=== PATIENT | male | born 1965 | race Caucasian/White ===

== ENCOUNTER 2018-01-31 06:04 | Inpatient (IN) | payer SELFPAY ==
--- NOTE | 2018-01-31 06:23 | PDOC ---
History of Present Illness - General Chief Complaint: Syncope/Near Syncope Stated Complaint: SYNCOPE X2 Time Seen by Provider: 01/31/18 06:17 History Source: Patient, EMS, Family Exam Limitations: No Limitations - History of Present Illness Initial Comments: 01/31/18 06:18 52 YOM without known PMH but who has been estranged from the healthcare system for several years, who p/w two episodes of syncope with GLF to the floor this morning, first was unwitnessed but the came and found him on the floor after hearing a thud, states he would not awaken for several minutes but after he did, he was able to stand and walk, but then had the second event shortly thereafter and hit the back of his head on the floor. EMS notes that the patient was noted to be in A-fib with rate between 70 and 100 for the duration of their care, no known h/o A-fib. His FSBG was 98 en route. The patient currently notes lightheadedness and pain to the back of his head where he hit it. No vision change, nausea, vomiting, chest pain, SOB, abdominal pain, back pain, neck pain, urinary incontinence/retention, black/bloody stool. Does not smoke, drinks socially but not in the past two days. Only one prior syncopal episode in his life when he was 11 years old. tPA Exclusion Checklist 0-3hr - Time Elapsed Date last known well: 01/31/18 Time last known well: 06:00 Elaspsed time: Day(s) and 1 Hour(s) and 0 Minutes - Thrombolytic Therapy Candidate Is the patient eligible for Thrombolytic Therapy?: No - Exclusion Criteria 0-3hr SBP greater than 185 or DBP greater than 110mmHg despite tx: No Recent IC/spinal surgery,head trauma or stroke w/in last 3mo: No Hx of previous IC hemorrhage, IC neoplasm, AVM or aneurysm: No Active internal bleeding: No Blding diathesis(low plt ct, inc PTT,INR>1.7 or use of NOAC): No Symptoms suggest subarachnoid hemorrhage: No CT demonstrates multilobar infarct(>1/3 cerebral hemiphere): No Arterial puncture at noncompressible site in previous 7 days: No Blood glucose concentration less than 50mg/dL (2.7mmol/L): No - Relative Exclusion Criteria 0-3h Life expectancy <1yr/severe co-morbid illness/EARRING [employer]ER on admit: No : No Patient/family refused: No Rapid improvement: Yes Stroke severity too mild: Yes Recent acute [place] (w/in previous 3 months): No Seizure at onset with postictal residual neuro impairments: No Major surgery or serious trauma w/in previous 14 days: No Recent GI or hemorrhage (w/in previous 21 days): No - Ineligibility reason(s) Reasons No tPA given: See reason(s) noted above NIH Stroke Scale - Last Known Well Date/Time & Onset Date Last Known Well: 01/31/18 Time Last Known Well: 06:00 - Initial Evaluation Level of consciousness: Alert Ask patient the month and their age: Answers both correctly Ask patient to open & close eyes; make fist and let go: Obeys both correctly Best gaze (horizontal eye movement): Normal Visual field testing: No visual field loss Facial paresis (Show teeth/raise eyebrows/close eyes tight): Normal symmetrical movement Motor Function: Left Arm: Normal Motor Function: Right Arm: Normal (extends arm 90 (or 45) degrees for 10 seconds without drift Motor Function: Left Leg: Normal (extends leg 30 degrees for 5 seconds without drift) Motor Function: Right Leg: Normal (extends leg 30 degrees for 5 seconds without drift) Limb Ataxia: No ataxia Sensory(Use pinprick test arms,legs,trunk,face/side to side): Normal Best language (Describe picture, name items, read sentences): No Aphasia Dysarthria (read several words): Normal articulation Extinction and Inattention: No abnormality - Total Score NIH Stroke Scale Score: 0 Past History - Past Medical History Allergies/Adverse Reactions: Allergies Allergy/AdvReac Type Severity Reaction Status Date / Time No Known Allergies Allergy Verified 01/31/18 06:18 Review of Systems - Review of Systems Able to Perform ROS?: Yes Comments:: 01/31/18 06:35 GEN: no fever, chills, malaise, generalized weakness, or weight change HEENT: no ear pain, sore throat, vision change, or eye pain CV: lightheadedness, syncope, no chest pain, palpitations, or edema RESP: no cough, wheezing, or SOB GI: no abdominal pain, nausea, vomiting, diarrhea, constipation, or white/black/ bloody stool : no dysuria, hematuria, incontinence, retention, bleeding, or discharge MSK: no neck/back pain, muscle weakness/pain, or joint swelling/pain NEURO: headache, no seizure, vertigo, numbness, tingling, or focal weakness PSYCH: no substance use, no behavior change SKIN: no jaundice, no rash ROS otherwise negative except as noted in HPI *Physical Exam - Vital Signs 01/31/18 06:37 Initial Vital Signs Temp Pulse Resp BP Pulse Ox 97.6 F 75 18 120/82 98 01/31/18 06:05 01/31/18 06:05 01/31/18 06:05 01/31/18 06:05 01/31/18 06:05 GENERAL: well-appearing, A/Ox4, no distress, answers questions appropriately, accompanied by family members HEENT: PERRLA, EOMI, moist mucous membranes, no scalp contusion, no cephalohematoma, no scalp laceration, no raccoon eyes, no ewing sign, no hemotympanum, no CSF rhinorrhea/otorrhea, no jaw malocclusion NECK/BACK: no midline ttp C/T/L spine, no spinal stepoff or deformity, no hematoma, full ROM, neck supple CARDIOVASCULAR: irregularly irregular, not tachycardic or bradycardic, normal S1S2, no MGR, strong peripheral pulses, capillary refill <2 seconds, extremities wwp, no edema LUNGS/RESPIRATORY: no respiratory distress, CTAB, equal breath sounds bilaterally GI/ABDOMEN: symmetric [id number], normoactive BS, soft, no ttp, no midline pulsatile masses : no CVA tenderness EXTREMITIES: pelvis stable, no thigh hematoma, no muscle atrophy, no acute deformity, no edema SKIN: warm and dry, no pallor, no jaundice, no rash, no bruising, no skin breakdown, no cuts, no lesions NEUROLOGICAL: GCS 15, CN II-XII grossly intact, 5/5 strength proximally and distally, no facial droop, normal [id number], no pronator drift, NIHSS is 0 , horizontal nystagmus on extreme lateral gaze bilaterally which lasts ~5 seconds then extinguishes, does not change direction, no rotational component ED Treatment Course - LABORATORY CBC & Chemistry Diagram: 01/31/18 06:27 01/31/18 06:27 Medical Decision Making - Medical Decision Making 01/31/18 06:43 Adult male Pt p/w reported LOC with loss of postural tone and GLF, x2 episodes, with spontaneous recovery, consistent with syncope. EMS reports was in A-fib without RVR, no prior reported hx but patient not feeling palpitations/arrhythmia now. Initial Vital Signs Temp Pulse Resp BP Pulse Ox 97.6 F 75 18 120/82 98 01/31/18 06:05 01/31/18 06:05 01/31/18 06:05 01/31/18 06:05 01/31/18 06:05 Exam: As noted in Physical Exam section. Main concern is that the patient is in new-onset A-fib which has precipitated these two syncopal episodes, OR that the patient has had a thromboembolic event from chronic long-standing A-fib which he is untreated for because he is estranged from healthcare x years. The patient will need dry head CT at this time. He is neurologically intact at this time and therefore not candidate for any vascular intervention or tPA, and thus emergent MRI/MRA is not needed. Also considered on ddx are reflex syncope, ACS, other conduction abnormality e.g. SVT /WPW/[place]/long QT/ventricular dysrhythmia, structural heart disease e.g. valvular disease, PE, orthostatic hypotension, TIA/CVA, SAH, seizure, metabolic/ electrolyte derangement e.g. DM/DKA/thyroid issue, infection/sepsis/vitals abnormalities, etc. W/U ordered: EKG CXR Head CT CBCD CMP Mg Phos Cardiac Panel UA UCx TSH TX ordered: IVF, O2, monitor EKG: Reviewed; results as noted in ECG Review section. CXR: Pending CT Head: Pending Labs: Pending Reassessment: Unchanged, no complaints Patient is presented to Dr. Hernandez and endorsed to Emily Werner at the end of my shift.
[2018-01-31 06:39] LABS: BASO % 0.7 % (0-2.0); EOS % 3.8 % (0-4.5); HEMATOCRIT 47.9 % (35.4-49); HEMOGLOBIN 16.1 GM/dL (11.7-16.9); LYMPH % 29.6 % (8-40); MCH 31.1 pg (25.7-33.7); MCHC 33.7 g/dl (32.0-35.9); MEAN CELL VOLUME 92.4 fl (80-96); MEAN PLT VOLUME 10.1 fl (7.5-11.1); MONO % 5.8 % (3.8-10.2); NEUT % 60.1 % (42.8-82.8); PLATELET COUNT 203 K/MM3 (134-434); RBC 5.19 M/mm3 (4.00-5.60); RDW 13.1 % (11.9-15.9); WHITE BLOOD COUNT 7.5 K/mm3 (4.0-10.0)
[2018-01-31 06:52] LABS: INR 0.97 (0.83-1.09); PROTHROMBIN TIME (PATIENT) 11.5 SEC (9.7-13.0)
[2018-01-31 07:16] LABS: ALBUMIN 3.6 g/dl (3.4-5.0); ALK PHOS 70 U/L (45-117); ANION GAP 7 MMOL/L (8-16); BILIRUBIN,TOTAL 0.6 mg/dL (0.2-1); BLOOD UREA NITROGEN 14 mg/dL (7-18); CALCIUM 8.6 mg/dL (8.5-10.1); CHLORIDE 108 mmol/L (98-107); CO2 28 mmol/L (21-32); CREATININE 0.9 mg/dL (0.55-1.3); GLUCOSE,RANDOM 95 mg/dL (74-106); MAGNESIUM 2.2 mg/dL (1.8-2.4); PHOSPHOROUS 3.4 mg/dL (2.5-4.9); POTASSIUM 4.4 mmol/L (3.5-5.1); SGOT/AST 20 U/L (15-37); SGPT/ALT 33 U/L (13-61); SODIUM 143 mmol/L (136-145); TOT PROT 6.6 g/dl (6.4-8.2)
--- NOTE | 2018-01-31 07:26 | PDOC ---
*Physical Exam - Vital Signs Last Vital Signs Temp Pulse Resp BP Pulse Ox 97.6 F 100 H 18 120/82 98 01/31/18 06:05 01/31/18 06:40 01/31/18 06:05 01/31/18 06:05 01/31/18 06:05 ED Treatment Course - LABORATORY CBC & Chemistry Diagram: 01/31/18 06:27 01/31/18 06:27 - ADDITIONAL ORDERS Additional order review: Laboratory Results 01/31/18 01/31/18 06:27 06:27 PT with INR 11.50 INR 0.97 Sodium 143 Potassium 4.4 Chloride 108 H Carbon Dioxide 28 Anion Gap 7 L BUN 14 Creatinine 0.9 Creat Clearance w eGFR > 60 Random Glucose 95 Calcium 8.6 Phosphorus 3.4 Magnesium 2.2 Total Bilirubin 0.6 AST 20 ALT 33 Alkaline Phosphatase 70 Creatine Kinase 95 Troponin I < 0.02 Total Protein 6.6 Albumin 3.6 TSH 3.09 01/31/18 06:27 RBC 5.19 MCV 92.4 MCHC 33.7 RDW 13.1 MPV 10.1 Neutrophils % 60.1 Lymphocytes % 29.6 Monocytes % 5.8 Eosinophils % 3.8 Basophils % 0.7 Medical Decision Making - Medical Decision Making Pt was signed out to me by resident Dr. Arboleda, who explained the presentation, ED course, any pending results, and needed interventions. Pending results include head CT. Pt is currently stable, has been rate controlled (HR in 70-80s ) and is lying comfortably. CBC, CMP and coags WNL. Pending head CT and then will admit for observation and further work-up. 01/31/18 07:23 Chest x-ray and head CT WNL, no acute pathology. Hospitalist team blogged for admission. 01/31/18 08:[address] Locke for telemetry. Pt lying comfortably with telemetry box. Pt has been rate controlled while in the department. Will continue to monitor. 01/31/18 08:39 *DC/Admit/Observation/Transfer Diagnosis at time of Disposition: New onset a-fib Syncope Qualifiers: Syncope type: unspecified Qualified Code(s): R55 - Syncope and collapse - Discharge Dispostion Condition at time of disposition: Stable Decision to Admit order: Yes - Referrals - Patient Instructions - Post Discharge Activity
--- NOTE | 2018-01-31 08:32 | PDOC ---
Attending Attestation - HPI HPI: 01/31/18 09:35 The patient is a 52 year old male with no significant past medical history, who presents for evaluation after two episodes of syncope with GLF to the floor this morning. The first syncopal episode was unwitnessed but the came and found him on the floor after hearing a thud. The states the patient would not awaken for about 10 minutes but after he did, he was able to stand and walk , but then had the second syncopal episode shortly after and hit the back of his head on the floor. EMS notes that the patient was in A-fib with rate between 70 and 100 for the duration of their care. The patient currently notes lightheadedness and pain to the back of his head where he hit it. He denies any other symptoms at this time. - Physicial Exam PE: 01/31/18 09:54 Vitals: Triage vital signs reviewed General Appearance: No acute distress, well nourished, well developed Head: Atraumatic Eyes: Pupils equal reactive round, extraocular movement intact Neck: Supple; No nuchal rigidity Chest Wall: Nontender Cardiac: Regular rate and rhythm, no murmurs, no rubs, no gallops Lungs: Clear to auscultation bilateral, good air movement bilaterally Abdomen: Soft, nondistended, normal bowel sounds, nontender to palpation Genitourinary: Rectal: Exam deferred Extremities: Full range of motion to all extremities, no cyanosis, clubbing, or edema Skin: Warm and dry, no rashes or lesions, no rash, no petechiae Neuro: AOX3; Cranial Nerves 2-12 grossly intact, Strength intact to all extremities, Sensation intact to all extremities, gait normal Psych: Normal mood, normal affect - Medical Decision Making 01/31/18 09:53 Documentation prepared by Dana Andino, acting as emergency medical service coordinator for Beto Hernandez MD <Dana Andino - Last Filed: 01/31/18 10:07> - Resident Resident Name: Emily Werner - ED Attending Attestation I have performed the following: I have examined & evaluated the patient, The case was reviewed & discussed with the resident, I agree w/resident's findings & plan, Exceptions are as noted - Medical Decision Making 52 years old with new onset A. fib with 2 syncopal episodes this morning Currently asymptomatic did not have any significant symptoms first first episode of syncope Head CT within normal limits We'll admit to medicine with cardiac consultation on telemetry for further management and evaluation. <Beto Hernandez - Last Filed: 01/31/18 15:26> Heart Score/ECG Review - ECG Impressions Comment:: 01/31/18 15:20 EKG performed at 6:45 AM. Demonstrates atrial fibrillation at [address] elevations or T-wave inversions. Interpreted by me. <Beto Hernandez - Last Filed: 01/31/18 15:26>
--- NOTE | 2018-01-31 10:53 | EKG ---
Test Reason : Blood Pressure : / mmHG Vent. Rate : 073 BPM Atrial Rate : 092 BPM P-R Int : 000 ms QRS Dur : 080 ms QT Int : 352 ms P-R-T Axes : 000 061 014 degrees QTc Int : 387 ms ATRIAL FIBRILLATION LOW VOLTAGE QRS ABNORMAL ECG NO PREVIOUS ECGS AVAILABLE Confirmed by KALLIE DÍAZ MD ([id number]) on 01/31/2018 10:52:40 AM Referred By: Confirmed By:KALLIE DÍAZ MD
--- NOTE | 2018-01-31 11:35 | CON.CARD ---
Consult Consult Specialty:: Cardiology Referred by:: Nikolas Locke MD Reason for Consultation:: Afib, syncope - History of Present Illness Chief Complaint: Syncope History of Present Illness: The patient is a 52 year old male with no significant past medical history, who presents for evaluation after two episodes of syncope first shortly after urination preceded by prodrome of diaphoresis. EMS notes that the patient was in A-fib with rate between 70 and 100 for the duration of their care. He denies prodromal sxs of chest pain, dyspnea, palpitations, orthopnea, PND or LE edema, drug or ETOH abuse. - Alcohol/Substance Use Hx Alcohol Use: No - Smoking History Smoking history: Never smoked Have you smoked in the past 12 months: No Home Medications - Allergies Allergies/Adverse Reactions: Allergies Allergy/AdvReac Type Severity Reaction Status Date / Time Penicillins Allergy Verified 01/31/18 07:10 - Home Medications Home Medications: Ambulatory Orders NK [No Known Home Medication] 01/31/18 Family Disease History - Family Disease History Family Disease History: Heart Disease: Father ([place] @ 69), Mother Review of Systems - Review of Systems Constitutional: reports: Diaphoresis Neurological: reports: Syncope Vital Signs: Vital Signs Temperature 97.6 F 01/31/18 06:05 Pulse Rate 100 H 01/31/18 06:40 Respiratory Rate 18 01/31/18 06:05 Blood Pressure 120/82 01/31/18 06:05 O2 Sat by Pulse Oximetry (%) 98 01/31/18 06:05 Constitutional: Yes: No Distress, Calm Neck: Yes: Supple Respiratory: Yes: Regular, CTA Bilaterally Gastrointestinal: Yes: Soft, Hypoactive Bowel Sounds Cardiovascular: Yes: Pulse Irregular JVD: No Carotid Bruit: No Heart Sounds: Yes: S1, S2 Edema: No - Other Data Labs, Other Data: CBC, BMP 01/31/18 06:27 01/31/18 06:27 INR, PTT INR 0.97 (0.83-1.09) 01/31/18 06:27 Troponin, BNP 01/31/18 06:27 Troponin I < 0.02 Troponin, BNP 01/31/18 06:27 Troponin I < 0.02 Afib @ 73 Imaging - Results Chest X-ray: Report Reviewed (NAD) Cat Scan: Report Reviewed (HCT: No bleed) Problem List - Problems (1) Atrial fibrillation Code(s): I48.91 - UNSPECIFIED ATRIAL FIBRILLATION Qualifiers: Atrial fibrillation type: unspecified Qualified Code(s): I48.91 - Unspecified atrial fibrillation (2) Syncope Code(s): R55 - SYNCOPE AND COLLAPSE Qualifiers: Syncope type: vasovagal syncope Qualified Code(s): R55 - Syncope and collapse Assessment/Plan 1. Newly diagnosed afib [id number] 2. Syncope with prodromal sxs c/w neurocardiogenic etiology P: 1. Check orthostatic VS 2. F/u echo to assess ventricular and valve fxn 3. button puncher to exclude symptomatic pauses, sick sinus syndrome 4. Not a/c candidate given low risk score, start AV ember agents as needed for rate-control 5. Thank you for consultative opportunity
--- NOTE | 2018-01-31 12:35 | ECHO ---
Name: ATTILA REIS Exam:Adult Echocardiogram Study Date: 01/31/2018 11:58 AM Age: 52 yrs Reason For Study: AFIB Height: 66 in Weight: 170 lb BSA: 1.9 m2 MMode/2D Measurements & Calculations IVSd: 0.95 cm Ao root diam: 3.0 cm LVIDd: 3.3 cm ACS: 1.8 cm LVIDs: 2.3 cm LVPWd: 1.3 cm EDV(Teich): 45.5 ml LVOT diam: 2.1 cm ESV(Teich): 18.3 ml RV S Lucas: 13.9 cm/sec Doppler Measurements & Calculations TR max lucas: 221.7 cm/sec Med Peak E' Lucas: 8.5 cm/sec TR max P.7 mmHg Lat Peak E' Lucas: 9.8 cm/sec Procedure A complete two-dimensional transthoracic echocardiogram was performed (2D, M-mode, Doppler and color flow Doppler). Left Ventricle The left ventricle is normal in size. Left ventricular systolic function is normal. Ejection Fraction = 55- 60%. No regional wall motion abnormalities noted. Right Ventricle The right ventricle is normal size. The right ventricular systolic function is normal. RV systolic TD I is estimated 10 cm/s. Atria The left atrial size is normal. Right atrial size is normal. Mitral Valve There is mild mitral annular calcification. There is mild mitral regurgitation. Tricuspid Valve The tricuspid valve is normal in structure and function. There is mild tricuspid regurgitation. Right ventricular systolic pressure is normal. Aortic Valve There is mild aortic sclerosis.;. Mild aortic regurgitation. Pulmonic Valve The pulmonic valve is not well visualized. Great Vessels The aortic root is normal size. Pericardium/Pleura There is no pericardial effusion. Interpretation Summary The left ventricle is normal in size. Left ventricular systolic function is normal. No regional wall motion abnormalities noted. Ejection Fraction = 55-60%. The right ventricular systolic function is normal. The left atrial size is normal. Right atrial size is normal. There is mild mitral annular calcification. There is mild mitral regurgitation. There is mild tricuspid regurgitation. Right ventricular systolic pressure is normal. There is mild aortic sclerosis. Mild aortic regurgitation. There is no pericardial effusion. Previous study is not available for comparison Carlos Vines MD 01/31/2018 12:35 PM
[2018-01-31 17:53] VITALS: BMI 26.6
[2018-01-31] MEDS ORDERED: FLU VACCINE QUAD 60 MCG/0.5 ML (MDV 18-19) IM ONE (17:53)
--- NOTE | 2018-01-31 18:52 | HP ---
Admitting History and Physical - Primary Care Physician PCP: Nikolas Locke - Admission Chief Complaint: syncope History of Present Illness: - 52 year old male with no significant past medical history, who presents for evaluation after two episodes of syncope first shortly after urination preceded by prodrome of diaphoresis. EMS notes that the patient was in A-fib with rate between 70 and 100 for the duration of their care. He denies prodromal sxs of chest pain, dyspnea, palpitations, orthopnea, PND or LE edema, drug or ETOH abuse. - Smoking History Smoking history: Never smoked Have you smoked in the past 12 months: No - Alcohol/Substance Use Hx Alcohol Use: No Home Medications - Allergies Allergies/Adverse Reactions: Allergies Allergy/AdvReac Type Severity Reaction Status Date / Time Penicillins Allergy Verified 01/31/18 07:10 - Home Medications Home Medications: Ambulatory Orders NK [No Known Home Medication] 01/31/18 Family Disease History - Family Disease History Family Disease History: Heart Disease: Father ([place] @ 69), Mother Physical Examination Vital Signs: Vital Signs Temperature 98 F 01/31/18 17:48 Pulse Rate 82 01/31/18 17:48 Respiratory Rate 18 01/31/18 17:48 Blood Pressure 133/78 01/31/18 17:48 O2 Sat by Pulse Oximetry (%) 97 01/31/18 13:58 Constitutional: Yes: No Distress HENT: Yes: Atraumatic Neck: Yes: Supple Cardiovascular: Yes: Pulse Irregular Respiratory: Yes: CTA Bilaterally Gastrointestinal: Yes: Normal Bowel Sounds Extremities: Yes: WNL Edema: No Peripheral Pulses WNL: Yes Neurological: Yes: Alert, Oriented Labs: CBC, BMP 01/31/18 06:27 01/31/18 06:27 Imaging - Results Cat Scan: Report Reviewed Problem List - Problems (1) Atrial fibrillation Assessment/Plan: new onset on meds per cardiology tele monitoring Code(s): I48.91 - UNSPECIFIED ATRIAL FIBRILLATION Qualifiers: Atrial fibrillation type: unspecified Qualified Code(s): I48.91 - Unspecified atrial fibrillation (2) Syncope Assessment/Plan: feeling good Code(s): R55 - SYNCOPE AND COLLAPSE Qualifiers: Syncope type: vasovagal syncope Qualified Code(s): R55 - Syncope and collapse Assessment/Plan Laboratory Tests 01/31/18 01/31/18 01/31/18 06:27 06:27 06:27 WBC 7.5 RBC 5.19 Hgb 16.1 Hct 47.9 MCV 92.4 MCH 31.1 MCHC 33.7 RDW 13.1 Plt Count 203 MPV 10.1 Absolute Neuts (auto) 4.5 Neutrophils % 60.1 Lymphocytes % 29.6 Monocytes % 5.8 Eosinophils % 3.8 Basophils % 0.7 Nucleated RBC % 0 PT with INR 11.50 INR 0.97 Sodium 143 Potassium 4.4 Chloride 108 H Carbon Dioxide 28 Anion Gap 7 L BUN 14 Creatinine 0.9 Creat Clearance w eGFR > 60 Random Glucose 95 Calcium 8.6 Phosphorus 3.4 Magnesium 2.2 Total Bilirubin 0.6 AST 20 ALT 33 Alkaline Phosphatase 70 Creatine Kinase 95 Troponin I < 0.02 Total Protein 6.6 Albumin 3.6 TSH 3.09 Blood Type Antibody Screen 01/31/18 01/31/18 01/31/18 06:27 09:21 17:01 WBC RBC Hgb Hct MCV MCH MCHC RDW Plt Count MPV Absolute Neuts (auto) Neutrophils % Lymphocytes % Monocytes % Eosinophils % Basophils % Nucleated RBC % PT with INR INR Sodium Potassium Chloride Carbon Dioxide Anion Gap BUN Creatinine Creat Clearance w eGFR Random Glucose Calcium Phosphorus Magnesium Total Bilirubin AST ALT Alkaline Phosphatase Creatine Kinase Troponin I < 0.02 Total Protein Albumin TSH Blood Type A POSITIVE A POSITIVE Antibody Screen Negative Active Medications Generic Name Dose Route Start Last Admin Trade Name Freq PRN Reason Stop Dose Admin Aspirin 162 mg 02/01/18 10:45 02/01/18 10:55 Ecotrin - PO 162 mg DAILY MARU Administration Metoprolol Tartrate 25 mg 02/01/18 10:45 02/01/18 10:55 Lopressor - PO 25 mg BID MARU Administration
--- NOTE | 2018-02-01 09:56 | PN ---
Progress Note (short form) - Note Progress Note: Chief Complaint: Events noted, notes reviewed, denies any chest pain or dyspnea , atrial fibrillation is persistent rate controlled History of Present Illness: Seen and examined on telemetry. Events noted, notes reviewed, denies any chest pain or dyspnea, atrial fibrillation is persistent rate controlled Echocardiography yesterday revealed normal LV size and function, LVEF 55-60%, normal RV size and function, normal LA/RA size, mild MR, TR and AR - Current Medication List None ordered Review of Systems - Review of Systems Constitutional: denies: Chills or Fever Cardiovascular: as noted above Gastrointestinal: denies: Nausea, Vomiting, Diarrhea, Constipation or Abdominal discomfort Genitourinary: No symptoms reported Neurological: No symptoms reported Vital Signs: Last Vital Signs Temp Pulse Resp BP Pulse Ox 98.0 F 90 16 113/53 L 99 02/01/18 10:02 02/01/18 10:02 02/01/18 10:02 02/01/18 10:02 02/01/18 09:00 Intake & Output 01/29/18 01/30/18 01/31/18 02/01/18 23:59 23:59 23:59 23:59 Intake Total 460 300 Balance 460 300 Weight 170 lb Constitutional: No Distress, Calm Neck: Supple Negative JVD Respiratory: Clear to A&P Bilaterally Cardiovascular: S1 S2 Irregularly Irregular Gastrointestinal: Soft Benign Normal Bowel Sounds Ext: No Edema Labs: Troponin, BNP 01/31/18 01/31/18 17:01 19:30 Troponin I < 0.02 < 0.02 CBC, BMP 01/31/18 06:27 01/31/18 06:27 Assessment/Plan ASSESSMENT: 1. Paroxysmal atrial fibrillation [id number] score of 0, no evidence of structural heart disease 2. Syncope with prodrome consistent with post micturition syncope vasovagal mediation which could have precipitated the above arrhythmia PLAN: 1. Add ASA 2. Add B-Blockers 3. If arrhythmia persists with therapy administration (B-Blockers) consideration for cardioversion, 48 hour window from arrhythmia onset/yesterday AM, if greater than 48 hours BRIDGET guidance would be needed Marli Ramirez M.D.
[2018-02-01] MEDS: METOPROLOL TARTRATE 25 MG TABLET (FP) PO SCH ×2 (10:55→22:07)
[2018-02-01] MEDS: ASPIRIN COATED 81 MG TABLET.EC PO SCH (10:55)
--- NOTE | 2018-02-01 16:50 | PN ---
Progress Note, Physician - Current Medication List Current Medications: Active Medications Aspirin (Ecotrin -) 162 mg PO DAILY [facility] Last Admin: 02/01/18 10:55 Dose: 162 mg Metoprolol Tartrate (Lopressor -) 25 mg PO BID [facility] Last Admin: 02/01/18 10:55 Dose: 25 mg - Objective Vital Signs: Vital Signs Temperature 97.8 F 02/01/18 14:00 Pulse Rate 72 02/01/18 14:00 Respiratory Rate 20 02/01/18 14:00 Blood Pressure 90/64 02/01/18 14:00 O2 Sat by Pulse Oximetry (%) 99 02/01/18 09:00 Constitutional: Yes: No Distress HENT: Yes: Atraumatic Neck: Yes: Supple Cardiovascular: Yes: Regular Rate and Rhythm Respiratory: Yes: CTA Bilaterally Gastrointestinal: Yes: Normal Bowel Sounds Extremities: Yes: WNL Edema: No Peripheral Pulses WNL: Yes Neurological: Yes: Alert, Oriented Labs: CBC, BMP 01/31/18 06:27 01/31/18 06:27 INR, PTT INR 0.97 (0.83-1.09) 01/31/18 06:27 Problem List - Problems (1) Atrial fibrillation Assessment/Plan: new onset on meds per cardiology tele monitorintroponins negative Code(s): I48.91 - UNSPECIFIED ATRIAL FIBRILLATION Qualifiers: Atrial fibrillation type: unspecified Qualified Code(s): I48.91 - Unspecified atrial fibrillation (2) Syncope Assessment/Plan: feeling good Code(s): R55 - SYNCOPE AND COLLAPSE Qualifiers: Syncope type: vasovagal syncope Qualified Code(s): R55 - Syncope and collapse
[2018-02-02 09:44] VITALS: BP 100/60; PULSE 79; TEMP 97
[2018-02-02] MEDS: ASPIRIN COATED 81 MG TABLET.EC PO SCH (09:45)
[2018-02-02] MEDS: METOPROLOL TARTRATE 25 MG TABLET (FP) PO SCH (09:45)
--- NOTE | 2018-02-02 12:53 | PN ---
Progress Note, Physician History of Present Illness: No further near or true syncope, afib with improved rate-control on metoprolol. - Current Medication List Current Medications: Active Medications Aspirin (Ecotrin -) 162 mg PO DAILY [facility] Last Admin: 02/02/18 09:45 Dose: 162 mg Metoprolol Tartrate (Lopressor -) 25 mg PO BID [facility] Last Admin: 02/02/18 09:45 Dose: 25 mg - Objective Vital Signs: Vital Signs Temperature 97.0 F L 02/02/18 09:44 Pulse Rate 79 02/02/18 09:44 Respiratory Rate 20 02/02/18 09:44 Blood Pressure 100/60 02/02/18 09:44 O2 Sat by Pulse Oximetry (%) 99 02/02/18 09:00 Constitutional: Yes: No Distress, Calm Neck: Yes: Supple Cardiovascular: Yes: Pulse Irregular Respiratory: Yes: Regular, CTA Bilaterally Gastrointestinal: Yes: Normal Bowel Sounds, Soft Edema: No Labs: CBC, BMP 01/31/18 06:27 01/31/18 06:27 INR, PTT INR 0.97 (0.83-1.09) 01/31/18 06:27 - ....Imaging EKG: Report Reviewed (Tele: Rate-controlled afib) Problem List - Problems (1) Atrial fibrillation Code(s): I48.91 - UNSPECIFIED ATRIAL FIBRILLATION Qualifiers: Atrial fibrillation type: unspecified Qualified Code(s): I48.91 - Unspecified atrial fibrillation (2) Syncope Code(s): R55 - SYNCOPE AND COLLAPSE Qualifiers: Syncope type: vasovagal syncope Qualified Code(s): R55 - Syncope and collapse Assessment/Plan Echocardiography yesterday revealed normal LV size and function, LVEF 55-60%, normal RV size and function, normal LA/RA size, mild MR, TR and AR 1. Paroxysmal atrial fibrillation [id number] score of 0, no evidence of structural heart disease 2. Syncope with prodrome consistent with post micturition syncope vasovagal mediation which could have precipitated the above arrhythmia PLAN: 1. Continue ASA 81 qd, not a/c candidate given low risk score 2. Continue Toprol XL 25 qd 3. Not candidate for cardioversion given lack of access to anticoagulation referable to insurance status, d/c planning
[2018-02-02] MEDS ORDERED: ASPIRIN COATED 81 MG TABLET.EC PO SCH (13:02)
--- NOTE | 2018-02-02 15:58 | DS ---
Physical Examination Vital Signs: Vital Signs Temperature 97.0 F L 02/02/18 09:44 Pulse Rate 79 02/02/18 09:44 Respiratory Rate 20 02/02/18 09:44 Blood Pressure 100/60 02/02/18 09:44 O2 Sat by Pulse Oximetry (%) 99 02/02/18 09:00 Constitutional: Yes: No Distress HENT: Yes: Atraumatic Neck: Yes: Supple Cardiovascular: Yes: Regular Rate and Rhythm Respiratory: Yes: CTA Bilaterally Gastrointestinal: Yes: Normal Bowel Sounds Extremities: Yes: WNL Edema: No Peripheral Pulses WNL: Yes Neurological: Yes: Alert, Oriented Labs: CBC, BMP 01/31/18 06:27 01/31/18 06:27 Discharge Summary Reason For Visit: SYNCOPE,NEW ONSET AFIB Current Active Problems Atrial fibrillation (Acute) New onset a-fib (Acute) Syncope (Acute) Condition: Stable - Instructions Disposition: HOME - Home Medications Comprehensive Discharge Medication List: Ambulatory Orders Aspirin Coated [Ecotrin -] 81 mg PO DAILY #30 tablet.ec 02/02/18 Metoprolol Succinate [Toprol XL -] 25 mg PO DAILY #30 tab.sr.24h 02/02/18
[2018-02-03] MEDS ORDERED: metoPROLOL SUCCINATE 25 MG TAB.SR.24H (FP) PO SCH (10:00)
== END 2018-02-02 16:37 | disposition home or self-care (01) | DRG 201 ==
LOC: JER 06:04 → JERBED 08:05 → J4W 17:15
PROVIDERS: ADMIT Internal Medicine; ATTEND Internal Medicine
DX: I48.0 Paroxysmal atrial fibrillation (principal); R55 Syncope and collapse; Z88.0 Allergy status to penicillin
CPT/HCPCS: 36415; 70450-TC; 71045-TC-FY; 80053; 82550; 83735; 84100; 84443; 84484; 85025; 85610; 86850; 86900; 86901; 90688; 93005; 93010; 93306-TC; 99285-25; G0008